=== PATIENT | female | born 1995 | race Caucasian/White ===

== ENCOUNTER 2025-05-11 04:58 | Inpatient (IN) | payer OTHER, MEDICAID, SELFPAY ==
--- NOTE | 2025-04-30 10:59 | ANES.PREANE2 ---
Pre-Anesthetic Assessment Preop Diagnosis: IUP Operation Date: 05/11/25 07:20 Proposed Procedures p Section Repeat With Tubal(Bilateral) - Parish Porter MD Was Beta Sarah taken within 24 hours: N/A Was Clonidine taken within 24 hours: N/A Social No alcohol and No tobacco Exam alert, oriented x 3, clear to auscultation bilaterally and regular rate & rhythm Airway Submandibular: within normal limits Cervical ROM: within normal limits Mallampati: Class II Dentition: full Anesthetic Plan ASA status: 3 Other: here for consult No prior issues with prior C-sections but does state that she got a little nauseous during her previous Gestational diabetes, on metformin Denies any cardiac issues Will obtain labs morning of procedure Plan for routine with spinal
[2025-05-11] VITALS (44 sets, daily range): BP systolic 114–143; BP diastolic 57–88; PULSE 65–106; RESP 13–16; TEMP 36.6; O2SAT 98–99; BMI 39.0
[2025-05-11 05:52] LABS: Hematocrit 32.5 % (36-47); Hemoglobin 10.40 g/dL (11.27-16.99); Mean Corpuscular HGB Conc 32.0 g/dL (30-55); Mean Corpuscular Hemoglobin 26.0 pg (27-33); Mean Corpuscular Volume 81.3 fl (85-98); Nucleated Red Blood Cells % 0 %; Platelet Count 229 10^3/cmm (157-399); Red Blood Count 4.00 10^6/uL (3.85-5.65); White Blood Count 8.49 10^3/uL (3.29-11.43)
--- NOTE | 2025-05-11 06:16 | P.ANESUD_ITS ---
Pre-Anesthetic Update Pre-Anesthetic Assessment: Date of Surgery/Procedure: 05/11/25 Preop Bee gnosis: IUP Proposed Procedure: Operation Date: 05/11/25 07:20 Proposed Procedures p Section Repeat With Tubal(Bilateral) - Parish Porter MD Changes from Pre-Anesthetic Assessment: No changes since patient was seen in preop clinic. Labs reviewed from this morning and acceptable for procedure. Patient is very nervous this morning. Plan for routine with spinal Labs Last 48hrs: Short CBC 05/11/25 Range/Units 05:37 WBC 8.49 (3.29-11.43) 10^ 3/uL Hgb 10.40 L (11.27-16.99) g/ dL Hct 32.5 L (36-47) % MCV 81.3 L (85-98) fl Plt Count 229 (157-399) 10^3/c mm Neut % (Auto) 67.6 % Neut # (Auto) 5.73 (1.8-7.7) 10^3/u L Vitals: Pulse Rate 83 05/11/25 06:02 Pulse Rhythm Regular 05/11/25 05:29 Pulse Strength 3+ Normal 05/11/25 05:29 Respiratory Effort Spontaneous, Non- Labored 05/11/25 05:29 Respiratory Depth Normal 05/11/25 05:29 Respiratory Patter n Normal 05/11/25 05:29 Blood Pressure 131/79 05/11/25 06:02 Oxygen Delivery Me thod Room Air 05/11/25 05:29
[2025-05-11] MEDS: metoclopramide 5 mg/mL SDV 2 mL 10 MG IVP (06:57)
--- NOTE | 2025-05-11 07:02 | PM.OBGYHP ---
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 The patient has diabetes controlled with metformin. After diagnosis, she has had blood sugars that are been appropriately in the range until last few weeks in which case her blood sugars have been starting to increase. Otherwise her is been unremarkable. The most notable part of her at this time is that she has had 4 previous C-sections. We have had multiple discussions about the fact that does increase her risk of intraoperative complications. Otherwise her labs have been relatively unremarkable. Her blood type is a positive. Her antibody screen is negative. She had a abnormal Pap smear which was HPV positive. She was GBS negative. As previously stated she failed her 3-hour glucose screen. The remainder of her infectious disease profile was within normal limits. Present Details : 6 Para: 4 Date of Last Menstrual Period: 08/23/24 Calculated Date of Delivery: 05/30/25 Gestational Age Based on Last Menstrual Period: 37 Labs Rubella: Immune RPR: Negative GBS: Negative Review of Systems General: Reports: 10 or more systems reviewed and unremarkable except in HPI and below Const: Reports: fatigue; Denies: fever(s) Eyes: Denies: change in vision Card: Denies: chest pain Musc: Reports: back pain Cody/Lymph: Denies: easy bruising Medications/Allergies Home Medications ?Medication ?Instructions ?Recorded ?Confirmed ?Last Taken ?Type metformin 750 mg tablet,extended 750 mg PO TID 05/11/25 05/11/25 05/09/25 History release 24 hr Allergies Allergy/AdvReac Type Severity Reaction Status Date / Time No Known Allergies Allergy Verified 05/11/25 05:05 Vitals/I&O/Wt Last Vital Signs Pulse 88 05/11/25 06:47 BP 128/83 05/11/25 06:47 O2 Del Method Room Air 05/11/25 05:29 Weight last 48 hrs Weight 242 lb Physical Exam Const: COMMON NORMALS: patient oriented x3 and alert HENMT: COMMON NORMALS: moist oral mucous membranes HEAD & SCALP: normal to inspection Chest: COMMONS NORMALS: normal inspection of the chest Resp: COMMON NORMALS: clear to auscultation bilaterally AUSCULTATION: clear to auscultation bilaterally Cardio: COMMON NORMALS: regular rate and regular rhythm RATE: regular rate RHYTHM: regular rhythm GI: INSPECTION: Yes normal to inspection and Yes other (Gravid) Extremity: COMMON NORMALS: normal to inspection GENERAL: Yes edema (Trace) Neuro: COMMON NORMALS: patient oriented x3, moves all extremities and no sensory deficits noted SENSORIUM/ORIENTATION: Yes alert Psych: COMMON NORMALS: mental status grossly normal Skin: COMMON NORMALS: no rashes or lesions noted GENERAL SKIN EXAM: no rashes or lesions noted Data 05/11/25 05:37 Results Labs OB ([facility]): Obstetrics 02/11/25 Blood Type A Positive Today Antibody Screen Pending Today Hct, (36-47) 32.5 % L Today Hgb, (11.27-16.99) 10.40 g/dL L Today Rho(D) Type Rh positive Today Plt Count, (157-399) 229 10^3/cmm Today A&P Assessment and plan 1. 38 weeks gestation of : We once again discussed the risk of the procedure. She once again reiterated that she does want her tubes tied and she understands that while it is apparent procedure that there is a 1-200 chance she can get again despite a tubal ligation that is performed successfully. We are also very aware that due to her history of multiple sections that her risk for complications is elevated. 2. Gestational diabetes mellitus: 3. History of : 4. Encounter for sterilization: PDMP PDMP Reviewed: Not Reviewed Attestations Medical Necessity Statement*: I anticipate routine and post care. We have discussed the possibility of a long hospital stay due to potential complications. Coding Level of Care Code Acute Code for Chg Fwd Diagnoses 38 weeks gestation of Z3A.38 Gestational diabetes mellitus O24.419 History of Z98.891 Encounter for sterilization Z30.2
[2025-05-11] MEDS: BUPivacaine 0.5% INJ 30 mL INJECTION (07:58)
[2025-05-11] MEDS: ceFAZolin 2,000 mg SDV 2000 MG IVP (07:58)
--- NOTE | 2025-05-11 08:24 | P.OP_ITS ---
Operative Report Date of procedure: May 11, 2025 Pre-op diagnosis: 1. 30-year-old 6 para 5-0-1-5 at 38 weeks estimated gestational age with gestational diabetes presenting for a repeat section and tubal ligation Post-op diagnosis: Status post repeat low-transverse section and intraoperative bilateral tubal ligation Procedure done: 1. Repeat low-transverse section 2. Intraoperative bilateral tubal ligation using modified Pocahontas technique. Specimens removed/disposition: 1. Female with a weight of 7 pounds 4 ounces and Apgars of 8, 9 2. Placenta with three-vessel cord delivered intact 3. Bilateral fallopian tube segments with the right segment being tagged Pathology: Bilateral fallopian tube segments with the right segment being tagged Surgeon: Parish Porter MD Estimated blood loss (mL): 400 Complications: None Procedure: The patient was brought back to the operating room where she was prepped and draped in usual sterile fashion. Anesthesia was found to be adequate. A lower transverse skin incision was then made with a #10 blade. I then dissected down to the underlying subcutaneous tissue until arriving at the prerectal fascia. The fascia was then nicked with the scalpel bilaterally. The fascial incisions were then carried laterally with Aguila scissors. Attention was then turned to the superior aspect of the incision which was grasped with kochers and tented up away from the underlying rectus abdominis muscles. The muscles were then dissected away from the fascia manually, and later with Aguila scissors. Attention was then turned to the inferior aspect of the incision, and the fascia was dissected away from the underlying muscle in similar fashion. The rectus abdominis muscles were then spread manually. The peritoneum was entered manually. Excellent visualization of the uterus was noted. A lower transverse uterine incision was then made with a #10 blade. Upon arriving at the intrauterine cavity, the uterine incision was then extended manually. The infant was noted to be in vertex position. The baby was delivered without difficulty. After delivery of the head, the mouth and nose were suctioned at the site of the incision. There was no meconium. There was no nuchal cord. The baby was then delivered and placed on the abdomen. The cord was cut and clamped. The baby was then handed to the waiting nurse. The placenta was removed intact. The uterus was externalized. The intrauterine cavity was cleansed of any remaining debris. The uterine incision was reapproximated in 2 layers. The first layer was performed with 0 Vicryl in a running locked stitch. The second layer was an imbricating stitch also using 0 Vicryl. Attention was then turned to the left fallopian tube. It was ligated cut and cauterized with 0 chromic in a modified Pocahontas fashion. We then identified the right fallopian tube and also ligated cut and cauterized it in similar fashion with 0 chromic. The right tube was tagged. The uterus was replaced into the abdomen. The peritoneum was then irrigated with warm saline. I reexamined the uterine incision and found it to be hemostatic. The rectus abdominis muscles were then reapproximated using 0 Vicryl in a running stitch. The fascia was then reapproximated using 0 Vicryl in running stitch. The subcutaneous tissue was then reapproximated using 0 Vicryl in a running stitch. The skin was reapproximated using a running subcuticular stitch using 4-0 Vicryl. Steri-Stri ps were placed. A sterile dressing was placed. All counts were correct x2. Both the mother and baby were in stable condition.
--- NOTE | 2025-05-11 08:45 | ANE.PACU2 ---
Inpatient post-anesthesia follow up: Airway intact: Yes Vital signs: Temperature 98.0 F Pulse Rate 82 Respiratory Rate 16 Blood Pressure 130/79 Pulse Oximetry 98 Oxygen Delivery Me thod Room Air Oxygen Flow Rate Fraction of Inspir ed Oxygen Hydration adequate: Yes Nausea and vomiting: No Pain level: 1 Mental status: Baseline
[2025-05-11 20:06] LABS: Hematocrit 30.3 % (36-47); Hemoglobin 9.80 g/dL (11.27-16.99); Mean Corpuscular HGB Conc 32.3 g/dL (30-55); Mean Corpuscular Hemoglobin 26.2 pg (27-33); Mean Corpuscular Volume 81.0 fl (85-98); Platelet Count 219 10^3/cmm (157-399); Red Blood Count 3.74 10^6/uL (3.85-5.65); White Blood Count 14.03 10^3/uL (3.29-11.43)
[2025-05-12 04:21] VITALS: BP 130/79; PULSE 82
[2025-05-12] MEDS: PRENATAL VIT NO.130/IRON/FOLIC 1 EACH TABLET PO (04:21)
[2025-05-12 04:23] VITALS: TEMP 36.7
--- NOTE | 2025-05-12 06:23 | P.DS_ITS ---
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 38 weeks gestation of : 2. Gestational diabetes mellitus: 3. History of : 4. Encounter for sterilization: Reason for Visit Reason for Visit: C Section Hospital Course Hospital Course The patient presented to the hospital for a repeat section. She is scheduled at 38 weeks due to her gestational diabetes. The section was remarkably unremarkable considering the number of previous sections that she had had. Her course was also unremarkable. Her pain was reasonably well-controlled. She passed gas. Her bleeding was within normal limits. She breast-fed well. There were no concerns. Information Peripartum Data: Delivery Method: Physical Exam Narrative: She is in no acute distress Lungs are clear auscultation bilaterally Her heart has a regular rate and rhythm Her fundus is below the umbilicus and firm Her dressing is clean, dry and intact Her extremities have trace edema Urinary Catheter Management: Ruffin: Cath Placed During This Visit: yes, but has since been removed by the nurse Reason for Continuing Indwelling Catheter: Decision to DC Catheter Urinary Catheter Date of Insertion: 05/11/25 Urinary Catheter Time of Insertion: 07:15 Date Urinary Catheter Removed: 05/12/25 Time Urinary Catheter Discontinued: 02:27 Discharge Data Studies Completed and Pending Pending at discharge Category Date Time Status High Risk PP Hemorrhage Stat Lab 05/11/25 05:50 Received High Risk PP Hemorrhage Stat Lab 05/11/25 13:25 Ordered Laboratory Results WBC 14.03 10^3/uL (3.29-11.43) H 05/11/25 20:02 RBC 3.74 10^6/uL (3.85-5.65) L 05/11/25 20:02 Hgb 9.80 g/dL (11.27-16.99) L 05/11/25 20:02 Hct 30.3 % (36-47) L 05/11/25 20:02 MCV 81.0 fl (85-98) L 05/11/25 20:02 MCH 26.2 pg (27-33) L 05/11/25 20:02 MCHC 32.3 g/dL (30-55) 05/11/25 20:02 RDW 14.6 % (12.1-15.1) 05/11/25 20:02 Plt Count 219 10^3/cmm (157-399) 05/11/25 20:02 MPV 11.2 fL (7.4-10.4) H 05/11/25 20:02 Neut % (Auto) 67.6 % 05/11/25 05:37 Lymph % (Auto) 22.7 % 05/11/25 05:37 Trinity % (Auto) 8.8 % 05/11/25 05:37 Eos % (Auto) 0.6 % 05/11/25 05:37 Baso % (Auto) 0.1 % 05/11/25 05:37 Neut # (Auto) 5.73 10^3/uL (1.8-7.7) 05/11/25 05:37 Lymph # (Auto) 1.9 10^3/uL (0.8-4.8) 05/11/25 05:37 Trinity # (Auto) 0.8 10^3/uL (0.2-0.9) 05/11/25 05:37 Eos # (Auto) 0.1 10^3/uL (0.0-0.8) 05/11/25 05:37 Baso # (Auto) 0.0 10^3/uL (0.0-0.1) 05/11/25 05:37 Nucleated RBC % (auto) 0 % 05/11/25 05:37 Nucleated RBCs # 0.0 /100WBC 05/11/25 05:37 Blood Type A Positive 05/11/25 05:50 Rho(D) Type Rh positive 05/11/25 05:50 Antibody Screen Negative 05/11/25 05:50 Vitals Last Vital Signs Temp 98.0 F 05/12/25 04:23 Pulse 82 05/12/25 04:21 Resp 16 05/11/25 22:42 BP 130/79 05/12/25 04:21 Pulse Ox 98 05/11/25 22:42 O2 Del Method Room Air 05/11/25 22:42 Results Labs OB ([facility]): Obstetrics US 02/11/25 Blood Type A Positive 05/11/25 Antibody Screen Negative 05/11/25 Hct, (36-47) 30.3 % L 05/11/25 Hgb, (11.27-16.99) 9.80 g/dL L 05/11/25 Rho(D) Type Rh positive 05/11/25 Plt Count, (157-399) 219 10^3/cmm 05/11/25 Discharge Plan Discharge Patient Disposition: Home Condition: Stable Prescriptions: New docusate sodium 100 mg Capsule 100 mg PO BID Qty: 30 0RF ibuprofen 800 mg Tablet 800 mg PO TID Qty: 45 0RF hydrocodone-acetaminophen 5-325 mg Tablet 1 tab PO Q6H PRN (Reason: Moderate To Severe Pain) Qty: 28 0RF Vitamin 27 mg iron- 800 mcg Tablet 1 tab PO DAILY Qty: 90 0RF Discontinued metformin 750 mg tablet extended release 24 hr 750 mg PO TID Referrals: Parish Porter MD [Primary Care Provider, [facility]] - 05/18/25 Discharge Diet: Usual diet Discharge Activity: Limit activity as instructed Patient Instructions: Depression (DC), Acute Wound Care (DC), Opioid Safety (DC), Preeclampsia and Eclampsia After Delivery (GEN), Hemorrhage (DC), OB [facility], OB Discharge Report, OB Food/Drug Interaction Guide, OB Care at Home, Opioid Safety, Post Anesthesia Care, Patient Portal & Nimesh Instructions, Abnormal Bleeding Discharge Attestations 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
[2025-05-12 10:13] VITALS: BP 126/69; PULSE 87
[2025-05-12 10:15] VITALS: RESP 16; TEMP 36.7
[2025-05-12] MEDS: HYDROcodone-acetaminophen 5-325 mg Tablet PO (12:45)
[2025-05-12 14:00] VITALS: BP 128/72; PULSE 103; RESP 16; TEMP 36.7; O2SAT 98
[2025-05-13 10:30] LABS: High Risk PP Hemorrhage BBK Notified
[2025-05-13 10:30] LABS: High Risk PP Hemorrhage BBK Notified
== END 2025-05-12 14:40 | disposition home or self-care (01) | DRG 785 ==
PROVIDERS: Admitting Provider Family Medicine; PCP Family Medicine; Visit Provider Family Medicine
PROC: 0UT70ZZ Resection of Bilateral Fallopian Tubes, Open Approach (ICD-10-PCS; CPT 59514; principal; 2025-05-11 07:00)
DX: O24.425 Gestational diabetes mellitus in childbirth, controlled by oral hypoglycemic drugs (principal); O34.211 Maternal care for low transverse scar from previous cesarean delivery; N85.8 Other specified noninflammatory disorders of uterus; Z3A.38 38 weeks gestation of pregnancy; Z37.0 Single live birth
CPT/HCPCS: 36415; 36416; 51702; 59025; 82962; 85025; 85027; 86850; 86900; 88302; 99211; J0690; J1885; J2274; J2405; J2765; J3010; J3490; J7030; J7121; J9999

== ENCOUNTER 2025-05-27 13:35 | Emergency (ER) | payer OTHER, MEDICAID, SELFPAY ==
[2025-05-27 13:50] VITALS: BP 112/64; PULSE 113; RESP 17; TEMP 37.7; O2SAT 98; BMI 35.0
--- NOTE | 2025-05-27 14:00 | CTR_ITS ---
PROCEDURE INFORMATION: Exam: CT Abdomen And Pelvis With Contrast Exam date and time: 05/27/2025 3:17 PM Age: 30 years old Clinical indication: Abdominal pain; Additional info: Abdominal pain, status post , concern for infection TECHNIQUE: Imaging protocol: Computed tomography of the abdomen and pelvis with contrast. Radiation optimization: All CT scans at this facility use at least one of these dose optimization techniques: automated exposure control; mA and/or kV adjustment per patient size (includes targeted exams where dose is matched to clinical indication); or iterative reconstruction. Contrast material: [id number]; Contrast volume: 100 ml; Contrast route: INTRAVENOUS (IV); COMPARISON: [place] [id number] 02/11/2025 3:30 PM RADIATION DOSE METRICS: Total DLP (mGy-cm): 957.17 FINDINGS: Lungs: Lung bases: Normal. Liver: Normal. No mass. Gallbladder and biliary ducts: Normal. No calcified stones. No ductal dilation. Pancreas: Normal. No ductal dilation. Spleen: Normal. No splenomegaly. Adrenal glands: Normal. No mass. Kidneys and ureters: Normal. No hydronephrosis. Stomach and bowel: Unremarkable. No obstruction. No mucosal thickening. Appendix: No evidence of appendicitis. Intraperitoneal space: Unremarkable. No free air. No significant fluid collection. Vasculature: Unremarkable. No abdominal aortic aneurysm. Lymph nodes: Unremarkable. No enlarged lymph nodes. Urinary bladder: Unremarkable as visualized. Reproductive: There is slight heterogeneity to the posterolateral right uterine wall , measuring 35.8 x 22.8 x 24.9 mm in diameter (, ). There is no demonstrable mass effect on the endometrial cavity. A small amount of fluid is identified within the pelvis. A scar is apparent on sagittal images in the lower uterine segment located just inferior to the area of myometrial heterogeneity. Bones/joints: Unremarkable. No acute fracture. Soft tissues: Unremarkable. CT/CT abdomen pelvis w con* [id number] IMPRESSION: Focus of subtle uterine heterogeneity in its anterior inferior right myometrium as detailed above. Possibly associated small volume of free pelvic fluid. Findings could reflect myometritis.
--- NOTE | 2025-05-27 14:02 | ED_ITS ---
HPI - Abdominal Pain 2 General: Chief Complaint: Abdominal Pain Stated Complaint: low abd pain (postop 14Xdays) Time Seen by Provider: 05/27/25 14:00 History of Present Illness: 30-year-old female with a history of C-s ection 2 weeks ago who developed abdominal pain and went to see Dr. Porter today in clinic. He is concerned she may have developed an infection. He called me and sent her to the emergency room. She says that she developed pain after she slept on her abdomen for the first time. She had accidentally done it in her sleep. She normally sleeps that way. Said when she got up she started having pain. She had a fever in clinic. When lying flat she had a very significant exam according to Dr. Porter. He was quite concerned about her and called me and sent her over for evaluation for possible intra-abdominal infection. She says it is better when she sits rather than lies flat. She has a temp of 99.8 on presentation here and is a bit tachycardic. Related Data Previous Rx's ?Medication ?Instructions ?Recorded docusate sodium 100 mg capsule 100 mg PO BID #30 caps 05/12/25 hydrocodone 5 mg-acetaminophen 325 1 tab PO Q6H PRN Mo derate To 05/12/25 mg tablet Severe Pain #28 tabs ibuprofen 800 mg tablet 800 mg PO TID #45 tabs 05/12 vits no.130-ferrous fum 1 tab PO DAILY #90 ta bs 05/12/25 27 mg iron-folic acid 800 mcg tablet ( Vitamin) cefdinir 300 mg capsule 300 mg PO BID 10 days #20 ca ps 05/27/25 Allergies Allergy/AdvReac Type Severity Reaction Status Date / Time No Known Allergies Allergy Verified 05/27/25 13:54 Review of Systems 2 Narrative: Constitutional symptoms: Negative except as documented in HPI. Skin symptoms: Negative except as documented in HPI. Eye symptoms: Negative except as documented in HPI. ENMT symptoms: Negative except as documented in HPI. Respiratory symptoms: Negative except as documented in HPI. Cardiovascular symptoms: Negative except as documented in HPI. Gastrointestinal symptoms: Negative except as documented in HPI. Genitourinary symptoms: Negative except as documented in HPI. Musculoskeletal symptoms: Negative except as documented in HPI. Neurologic symptoms: Negative except as documented in HPI. Psychiatric symptoms: Negative except as documented in HPI. Endocrine symptoms: Negative except as documented in HPI. Physical Exam 2 Narrative: EXAM NARRATIVE: General: Alert, no acute distress. Skin: Warm, dry. Head: Normocephalic, atraumatic. Neck: Supple, trachea midline. Eye: Extraocular movements are intact. Ears, nose, mouth and throat: mucosa moist. Cardiovascular: Regular, Normal peripheral perfusion. Respiratory: Lungs are clear to auscultation, respirations are non-labored, breath sounds are equal, Symmetrical chest wall expansion. Gastrointestinal: Soft, moderate suprapubic tenderness, Non distended Musculoskeletal: Normal ROM, no deformity. Neurological: Alert and oriented, No focal neurological deficit observed. Psychiatric: Cooperative, appropriate mood & affect. Course 2 Vital Signs: Vital signs: Vital Signs Temperature 99.8 F H 05/27/25 13:50 Pulse Rate 98 05/27/25 16:23 Respiratory Rate 16 05/27/25 15:52 Blood Pressure 143/85 05/27/25 16:23 Pulse Oximetry 98 05/27/25 16:23 Oxygen Delivery Me thod Room Air 05/27/25 15:52 MDM - Abdominal Pain Medical Decision Making Medical decision making: Patient's reason for coming to the emergency room: Abdominal pain, fever Social determinants: Patient is employed. I reviewed the patient's medical record. Patient has multiple visits with Dr. Porter and there is also a discharge summary after her fifth . I reviewed the patient's current home meds Patient does not take any chronic medications. Alternate historians: History from patient and from Dr. Porter Differential diagnosis: including but not limited to and based on the above HPI, review of systems and physical exam: Primary concern with abdominal pain post would be intra-abdominal infection. Also would have concern for things like urinary tract infection at [facility]. Orders placed to evaluate differential diagnosis based on the above differential, HPI and physical exam Lab Review: Laboratory results were reviewed and interpreted by myself the emergency room physician. Leukocytosis with a white count of 20,000. No renal failure. CRP is elevated but lactic is 0.7. Urinalysis is positive for infection. Nitrate negative but leukocyte esterase positive greater than 100 white cells and 4+ bacteria. CT of the abdomen pelvis with contrast: Possible focal area of myositis but no other acute findings. This was reviewed and interpreted by myself the emergency room physician. I also reviewed the radiology report. Assessment of risk: Level of risk: Low to moderate risk. Hospitalization considerations: Hospitalization was considered. She improved with fluids and feels much better now. She has a white count but no elevation in her lactate so likely is not septic Reexamination: Patient remained stable. No increased work of breathing. No altered mental status. No focal motor deficits. Consultation: Dr. Porter saw the patient a couple times while here. He is comfortable sending her home and seeing her in clinic tomorrow. Assessment and plan: Urinary tract infection Abdominal pain -Initially there was some concern for sepsis so sepsis protocol was followed. She is improved and has close follow-up with her PCP so she is going to go home tonight and has been informed of things to look for to return to the emergency room. -2 L normal saline bolus. Fluids based on ideal body weight. ?IV Zosyn -Sepsis quality measures. -Lactic acid with a reflex was ordered. -Blood cultures were ordered. ?I reevaluated the patient's volume status after sepsis fluids were given. - Discharged home - Discussed plan with patient. Answered any questions. - Evaluation and treatment of this problem were appropriate in the emergency setting. Lab Data 05/27/25 14:33 05/27/25 14:33 Labs/Radiology: Radiology Impressions Abdomen/Pelvis CT 05/27/25 14:00 IMPRESSION: Focus of subtle uterine heterogeneity in its anterior inferior right myometrium as detailed above. Possibly associated small volume of free pelvic fluid. Findings could reflect myometritis. ADDENDUM: 05/27/25 1547 THIS REPORT CONTAINS FINDINGS THAT MAY BE CRITICAL TO PATIENT CARE. The findings were verbally communicated via telephone conference at 3:46 PM COMPUTER REPAIR INSTRUCTOR on 05/27/2025 with SUSIE CHE. The findings were acknowledged and understood. Laboratory Results WBC 20.36 10^3/uL (3.29-11.43) H 05/27/25 14: RBC 4.63 10^6/uL (3.85-5.65) 05/27/25 14:33 Hgb 11.80 g/dL (11.27-16.99) 05/27/25 14: Hct 37.3 % (36-47) 05/27/25 14: MCV 80.6 fl (85-98) L 05/27/25 14:33 MCH 25.5 pg (27-33) L 05/27/25 14:33 MCHC 31.6 g/dL (30-55) 05/27/25 14:33 RDW 14.2 % (12.1-15.1) 05/27/25 14:33 Plt Count 329 10^3/cmm (157-399) 05/27/25 14:33 MPV 10.5 fL (7.4-10.4) H 05/27/25 14:33 Neut % (Auto) 87.1 % 05/27/25 14:33 Lymph % (Auto) 8.7 % 05/27/25 14:33 [place] % (Auto) 3.1 % 05/27/25 14:33 Eos % (Auto) 0.6 % 05/27/25 14:33 Baso % (Auto) 0.2 % 05/27/25 14:33 Neut # (Auto) 17.72 10^3/uL (1.8-7.7) H 05/27/25 14:33 Lymph # (Auto) 1.8 10^3/uL (0.8-4.8) 05/27/25 14:33 [place] # (Auto) 0.6 10^3/uL (0.2-0.9) 05/27/25 14:33 Eos # (Auto) 0.1 10^3/uL (0.0-0.8) 05/27/25 14:33 Baso # (Auto) 0.1 10^3/uL (0.0-0.1) 05/27/25 14:33 Nucleated RBC % (auto) 0 % 05/27/25 14:33 Nucleated RBCs # 0.0 /100WBC 05/27/25 14:33 ESR 18 mm/hr (0-15) H 05/27/25 14:33 Sodium 138 mmol/L (136-145) 05/27/25 14:33 Potassium 4.0 mmol/L (3.5-5.1) 05/27/25 14:33 Chloride 103 mmol/L (98-107) 05/27/25 14:33 Carbon Dioxide 22 mmol/L (22-29) 05/27/25 14:33 Anion Gap 17.0 (5-19) 05/27/25 14:33 BUN 10 mg/dL (6-20) 05/27/25 14:33 Creatinine 0.7 mg/dL (0.5-0.9) 05/27/25 14:33 GFR Calculation 99.6 mL/min (90-130) 05/27/25 14:33 Glucose 101 mg/dL (65-115) 05/27/25 14:33 Calculated Osmolality 285 mOsm/kg (285-295) 05/27/25 14:33 Lactic Acid 0.7 mmol/L (0.5-2.2) 05/27/25 14:33 Calcium 8.3 mg/dL (8.5-10.5) L 05/27/25 14:33 Total Bilirubin 0.6 mg/dL (0.15-1.2) 05/27/25 14:33 AST 13 U/L (0-32) 05/27/25 14:33 ALT 20 U/L (0-33) 05/27/25 14:33 Alkaline Phosphatase 87 U/L (35-105) 05/27/25 14:33 C-Reactive Protein 74.4 mg/L (0.0-4.9) H 05/27/25 14:33 Total Protein 7.5 g/dL (6.6-8.7) 05/27/25 14: Albumin 4.0 g/dL (3.5-5.2) 05/27/25 14:33 Globulin 3.5 g/dL (1.3-4.6) 05/27/25 14:33 Procalcitonin 0.06 ng/mL (0-0.5) 05/27/25 14: Urine Color Dark yellow (Yellow) A 05/27/25 15:15 Urine Appearance Turbid (CLEAR) A 05/27/25 15:15 Urine pH 5.5 (5-7) 05/27/25 15:15 Ur Specific [place] 1.029 (1.005-1.030) 05/27/25 15:15 Urine Protein 1+ (Negative) A 05/27/25 15:15 Urine Glucose (UA) Negative (Normal) 05/27/25 15:15 Urine Ketones Trace (Negative) 05/27/25 15:15 Urine Blood 2+ (Negative) A 05/27/25 15:15 Urine Nitrate Negative (Negative) 05/27/25 15:15 Urine Bilirubin 1+ (Negative) H 05/27/25 15:15 Urine Urobilinogen 1.0 mg/dL (Negative) 05/27/25 15:15 Ur Leukocyte Esterase 3+ (Negative) A 05/27/25 15:15 Urine RBC 0-2 /hpf (0-2) 05/27/25 15:15 Urine WBC >100 /hpf (0-5) H 05/27/25 15:15 Ur Squamous Epith Cells 6-10 /hpf (0-5) 05/27/25 15:15 Amorphous Sediment Not Reportable 05/27/25 15:15 Urine Bacteria 4+ /hpf (NONE) H 05/27/25 15:15 Hyaline Casts 2.46 /lpf 05/27/25 15:15 All radiology interpretation(s) finalized by discharge Discharge Plan Discharge Patient Disposition: Home Clinical Impression: Urinary tract infection Condition: Stable Prescriptions: New cefdinir 300 mg capsule 300 mg PO BID 10 Days Qty: 20 0RF No Action docusate sodium 100 mg Capsule 100 mg PO BID Qty: 30 0RF ibuprofen 800 mg Tablet 800 mg PO TID Qty: 45 0RF hydrocodone-acetaminophen 5-325 mg Tablet 1 tab PO Q6H PRN (Reason: Moderate To Severe Pain) Qty: 28 0RF Vitamin 27 mg iron- 800 mcg Tablet 1 tab PO DAILY Qty: 90 0RF Discharge Orders: Discharge ED (Routine); Ordered 05/27/25 Ordered By: Susie Che Referrals: Parish Porter MD [Primary Care Provider, Family Practice] Discharge Diet: Usual diet Discharge Activity: Increase activity as tolerated Patient Instructions: Urinary Tract Infection in Women (ED), Abdominal Pain (ED), Opioid Safety, Pain Management, Patient Portal & Nimesh Instructions Activity Restrictions/Additional Instructions: Please follow-up with Dr. Porter as instructed tomorrow morning. Return to the emergency room if you have any new concerns or worsening condition. Thank you for choosing [facility] for your healthcare needs today. You have been screened and evaluated and felt safe for discharge. Health conditions do change or evolve sometimes and as such it is important that you follow up with your Primary Doctor to be re checked, 3-5 days is a general good time frame for follow up. You are always welcome to return to the ED for re assessment if your symptoms are worsening or you have new concerns Print Language: Palestinian Coding Level of Care Code ED System Safety Manager for Sheryl Palmer
[2025-05-27 14:44] LABS: Hematocrit 37.3 % (36-47); Hemoglobin 11.80 g/dL (11.27-16.99); Mean Corpuscular HGB Conc 31.6 g/dL (30-55); Mean Corpuscular Hemoglobin 25.5 pg (27-33); Mean Corpuscular Volume 80.6 fl (85-98); Nucleated Red Blood Cells % 0 %; Platelet Count 329 10^3/cmm (157-399); Red Blood Count 4.63 10^6/uL (3.85-5.65); White Blood Count 20.36 10^3/uL (3.29-11.43)
[2025-05-27 15:00] LABS: Lactic Sepsis W/Reflex 0.7 mmol/L (0.5-2.2)
[2025-05-27 15:01] LABS: Alanine Aminotransferase 20 U/L (0-33); Albumin Level 4.0 g/dL (3.5-5.2); Alkaline Phosphatase 87 U/L (35-105); Anion Gap 17.0 (5-19); Aspartate Amino Transferase 13 U/L (0-32); Blood Urea Nitrogen 10 mg/dL (6-20); Calcium 8.3 mg/dL (8.5-10.5); Carbon Dioxide 22 mmol/L (22-29); Chloride 103 mmol/L (98-107); Creatinine Clr Calc Pharmacy 141.5760; Globulin 3.5 g/dL (1.3-4.6); Glucose 101 mg/dL (65-115); Osmolality Calculated 285 mOsm/kg (285-295); Potassium 4.0 mmol/L (3.5-5.1); Sodium 138 mmol/L (136-145); Total Protein 7.5 g/dL (6.6-8.7)
[2025-05-27 15:08] LABS: Procalcitonin 0.06 ng/mL (0-0.5)
[2025-05-27] MEDS: iohexol 350 mg/mL 500 mL Btl (per mL) IV (15:26)
[2025-05-27 15:29] LABS: Glucose Urine UA Negative (Normal); Nitrate Urine Negative (Negative); Specific Gravity, Urine 1.029 (1.005-1.030)
[2025-05-27] MEDS: piperacillin-tazobactam 4.5 GM in sodium chloride 0.9% (plus) 50 ML IV (15:34)
[2025-05-27 15:52] VITALS: BP 146/86; PULSE 102; RESP 16; O2SAT 99
[2025-05-27 16:23] VITALS: BP 143/85; PULSE 98; O2SAT 98
== END 2025-05-27 16:57 | disposition home or self-care (01) ==
PROVIDERS: Emergency Provider Emergency Medicine; PCP Family Medicine
DX: N39.0 Urinary tract infection, site not specified (principal)
CPT/HCPCS: 36415; 74177; 80053; 81001; 83605; 84145; 85025; 85651; 86140; 87040; 87086; 96365; 99285; J2543; J7030; J9999